=== PATIENT | female | born 1955 | race Caucasian/White ===

== ENCOUNTER 2025-02-08 06:28 | Day surgery (SDC) | payer OTHER, SELFPAY | END 2025-02-08 10:10 | disposition home or self-care (01) | LOC: GI 06:28 | PROVIDERS: ATTENDING PHYSICIAN Internal Medicine | DX: K22.4 Dyskinesia of esophagus (principal); K44.9 Diaphragmatic hernia without obstruction or gangrene; R13.10 Dysphagia, unspecified | CPT/HCPCS: 43249; 43239; 88305 ==

== ENCOUNTER → 2025-02-17 06:37 | Outpatient (REF) | payer OTHER, SELFPAY | LOC: RCS 06:37 | PROVIDERS: ATTENDING PHYSICIAN Internal Medicine Cardiovascular Disease; FAMILY PHYSICIAN Family Medicine | DX: I10 Essential (primary) hypertension (principal); R09.89 Other specified symptoms and signs involving the circulatory and respiratory systems; I65.22 Occlusion and stenosis of left carotid artery; I47.29 Other ventricular tachycardia; I49.3 Ventricular premature depolarization | CPT/HCPCS: 71275; 74174; 93306; 93356; 93880; Q9967 ==